=== PATIENT | male | born 1965 | race Caucasian/White ===

== ENCOUNTER → 2016-11-21 | Outpatient (CLI) | payer BC ==
[~2016-11-21] VITALS: Ht 182.9 cm; Wt 88.5 kg
[~2016-11-21] MED LIST: BREO ELLIPTA I1 EACH IH; INCRUSE ELLI62.5 MCG IH
[2016-11-21 09:36] LABS: HEMATOCRIT 43.1 % (38.0-50.0); MCH 30.7 PG (29.0-34.0); MCHC 34.1 G/DL (30.0-36.0); MEAN PLAT.VOLUME 9.4 uM^3 (9.0-12.4); PLATELET COUNT 230 K/uL (156-360); RBC DIS.WIDTH-CV 12.7 % (11.8-14.6); RBC DIS.WIDTH-SD 42.2 % (39-53); RED BLOOD COUNT 4.79 M/uL (4.00-5.50); WHITE BLOOD COUNT 9.4 K/uL (4.1-10.2)
[2016-11-21 09:44] LABS: PROTHROMBIN TIME 11.2 SEC (10.2-12.9)
[2016-11-21 09:46] LABS: PTT 30.7 SEC (25-37)
== END | disposition home or self-care (01) ==
LOC: OPR 09:04 → EDSTATUS 10:00 → OPR 10:00
PROVIDERS: Internal Medicine Pulmonary Disease
PROC: 0BBF3ZX Excision of Right Lower Lung Lobe, Percutaneous Approach, Diagnostic (ICD-10-PCS; principal; 2016-11-21)
DX: R91.1 Solitary pulmonary nodule (principal)
CPT/HCPCS: 71010; 77012; 85027; 85610; 85730; 88305; 88341 TC; 88342 TC; J3010

== ENCOUNTER 2016-12-22 07:08 | Day surgery (SDC) | payer BC ==
[~2016-12-22] VITALS: Ht 182.9 cm; Wt 88.0 kg
[2016-12-22 08:01] VITALS: BP 134/81
[2016-12-22 08:30] LABS: INTER. NORMALIZED RATIO 1.1; PROTHROMBIN TIME 11.6 SEC (10.2-12.9)
[2016-12-22 08:33] LABS: PTT 31.6 SEC (25-37)
[2016-12-22 08:55] LABS: ALKALINE PHOSPHATASE 76 IU/L (3-129); ANION GAP 9 MEQ/L (2-14); CHLORIDE 105 MEQ/L (99-109); GFR ESTIMATE (CALCULATED) > 59 mL/min/; GLUCOSE 92 mg/dL (70-99); POTASSIUM 4.3 MEQ/L (3.7-5.4); SAMPLE HEMOLYSIS CHECK 0; SAMPLE ICTERIC CHECK 0; SAMPLE LIPEMIA CHECK 0; SODIUM 141 MEQ/L (136-147); TOTAL BILIRUBIN 0.5 MG/DL (0.0-1.0); UREA NITROGEN (BUN) 13 mg/dL (9-23)
[2016-12-22] MEDS ORDERED: COLACE100 MG PO (10:30)
[2016-12-22] MEDS ORDERED: HYDROCODON-ACE1 EAC7 PO (10:30)
[2016-12-22 10:50] VITALS: BP 126/76
[2016-12-22 11:29] VITALS: BP 138/72
== END 2016-12-22 11:39 | disposition home or self-care (01) ==
LOC: SDC 07:08 → 2SOUTH 09:21 → EDSTATUS 09:21 → SDC 09:21
PROVIDERS: Thoracic Surgery (Cardiothoracic Vascular Surgery)
PROC: 07B74ZX Excision of Thorax Lymphatic, Percutaneous Endoscopic Approach, Diagnostic (ICD-10-PCS; principal; 2016-12-22)
DX: C34.90 Malignant neoplasm of unspecified part of unspecified bronchus or lung (principal); J44.9 Chronic obstructive pulmonary disease, unspecified; Z88.0 Allergy status to penicillin
CPT/HCPCS: 80053; 85610; 85730; 86850; 86900; 86901; 88305; J0330; J0690; J1170; J2405; J2710; J3010

== ENCOUNTER → 2017-01-18 | Outpatient (CLI) | payer BC ==
[~2017-01-18] MED LIST changes: +ADVIL,NUPRIN,M200 MG PO; +COLACE100 MG PO; +DIGOXIN250 MCG PO; +HYDROCODON-ACE1 EAC7 PO; +LOPRESSOR25 MG PO; +NORCO 5/3251 TABLET PO
== END | disposition home or self-care (01) ==
LOC: RAD 08:19
DX: T79.7XXD Traumatic subcutaneous emphysema, subsequent encounter (principal); Z90.2 Acquired absence of lung [part of]
CPT/HCPCS: 71020